=== PATIENT | male | born 1950 | race Caucasian/White ===

== ENCOUNTER → 2016-12-22 | Outpatient (CLI) | payer OTHER ==
--- NOTE | 2016-12-23 09:12 | MR ---
MRI Lower Extremity, Right hip History: Right hip pain. Evaluate psoas. ICD-10 code: M25.559. Comparisons: Right hip pain. Technique: MRI was performed of the pelvis and right hip using a 3 [employer] MRI system. Large field-of-v iew coronal and axial imaging was obtained with standard imaging sequences. High-resolution small fie ld-of-view imaging was obtained of the hip with oblique axial, oblique coronal, and sagittal images w ith standard imaging sequences. Findings: The bone marrow edema and periosteal edema anteriorly in the right iliac near the sacroilia c joint have resolved over the interval indicating a healed stress fracture. No evidence for sacroili itis. No evidence for avascular necrosis of the femoral head. No evidence for stress fracture of the femoral neck. There is an enlarged nodular prostate. 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 Degenerative disk and degenerative joint disease is seen in the lower lumbar spine. Iliopsoas muscles and tendons are unremarkable bilaterally. Gluteus tendons are unremarkable at the g reater trochanter without attenuation. The other visualized musculature and tendons are unremarkable. Femoral head neck junction of the right hip has a contour abnormality at the anterosuperior aspect wh ich could be from prior osteoplasty. Mild periarticular spurring is seen in the femoral head and acet abulum. Mild cartilage thinning is seen superiorly in the femoral head and acetabulum. The anterior s uperior labrum is diminutive and frayed. Ligamentum teres is intact. Impression: 1. Mild early degenerative change right hip with mild cartilage thinning superiorly. Diminutive fraye d anterior superior labrum. 2. Healed stress injury at the anterior right ilium. 3. Iliopsoas muscle and tendon are unremarkable. 4. Large nonspecific prostate. Bladder diverticulum. 5. Degenerative disk and degenerative joint disease lower lumbar spine.
== END ==
LOC: FIMAGING 18:43
PROVIDERS: ATTEND Physical Medicine & Rehabilitation
DX: M16.11 Unilateral primary osteoarthritis, right hip (principal); N40.0 Benign prostatic hyperplasia without lower urinary tract symptoms; M51.36 Other intervertebral disc degeneration, lumbar region; N32.3 Diverticulum of bladder

== ENCOUNTER → 2018-01-26 | Outpatient (CLI) | payer OTHER | LOC: FIMAGING 13:44 | PROVIDERS: ATTEND Internal Medicine | DX: R05 Cough (principal); J34.89 Other specified disorders of nose and nasal sinuses ==

== ENCOUNTER 2018-02-12 15:45 | Inpatient (IN) | payer OTHER ==
[2018-02-12] MEDS ORDERED: methylPREDNISolone SOD SUCC 125 MG/2 ML VIAL IVP ONE (16:05)
[2018-02-12] MEDS ORDERED: ALBUTEROL 3 ML DEYVIAL IH ONE (16:05)
[2018-02-12] MEDS ORDERED: IPRATROPIUM/ALBUTEROL 3 ML DEYVIAL IH ONE (16:05)
--- NOTE | 2018-02-12 16:06 | EDPHY ---
H & P Time Seen by Provider: 02/12/18 15:53 HPI/ROS: CHIEF COMPLAINT: Cough and fever HISTORY OF PRESENT ILLNESS: Patient started getting sick 4 days ago last week and then had to skip work on and Tuesday because he felt so badly. He went urgent care to Tuesday and was started on Tamiflu despite an influenza test and then proceeded to get better for 24 hr. Last night he started getting worse and has had severe coughing and unable to sleep. Associated with fever and chills but not with hemoptysis or sputum production. He is associated no energy and headache and diffuse myalgias. Not better worse with anything. Much worse since 1899 last night. REVIEW OF SYSTEMS: Eye: no change in vision ENT: Mild sore throat but no ear symptoms Cardiac: no chest pain or syncope Pulmonary: HPI Abdomen: no vomiting, diarrhea, abdominal pain, decreased oral intake for the past 4 days Musculoskeletal: Diffuse myalgias nothing specific , no neck stiffness Skin: no rash Neuro: HPI Constitutional: HPI : no urinary symptoms A comprehensive 10 point review of systems is otherwise negative aside from elements mentioned in the history of present illness. PAST MEDICAL HISTORY: Includes chronic right hip pain, reflux, enlarged prostate, depression Social history: Here with a partner, nonsmoker, no recent foreign travel. General Appearance: Alert and conversant, cooperative. Eyes: No scleral icterus. ENT, Mouth: Slightly dry mucous membranes. No angioedema, no pharyngeal erythema or exudate, uvula midline. Respiratory: Bilateral expiratory wheezing, diffuse rhonchi, severe coughing. Cardiovascular: Regular rate and rhythm. Gastrointestinal: Abdomen is soft and non tender. Neurological: Alert, face symmetric, normal motor and sensory in extremities. Skin: Warm and dry, no rashes. Musculoskeletal: No neck stiffness, no calf tenderness. Psychiatric: Not agitated. Emergency Department course/MDM: Albuterol and DuoNeb, 125 mg IV Solu-Medrol. Chest x-ray and sepsis screening. 1638: Negative lactate and not hypotensive, right lower lung infiltrate on chest x-ray. Admission for nebulizer, steroids, IV antibiotics. Has not been hospitalized in the last 90 days. Normal saline 1 L IV, fluid resuscitation for pneumonia with hyponatremia and does not have severe sepsis or septic shock. Re-evaluated at 4:45 p.m., labs and plan discussed with patient and his partner. Smoking Status: Never smoked Constitutional: Initial Vital Signs Temperature (C) 38.0 C 02/12/18 15:49 Heart Rate 101 H 02/12/18 15:49 Respiratory Rate 20 02/12/18 15:49 Blood Pressure 137/71 H 02/12/18 15:49 O2 Sat (%) 92 02/12/18 15:49 O2 Delivery Mode Room Air Allergies/Adverse Reactions: Sulfa (Sulfonamide Antibiotics) Allergy (Mild, Verified 02/12/18 15:47) Other-Enter Comments IODINE IVP DYE Allergy (Intermediate, Uncoded 02/22/11 10:01) Hives ENVIRONMENTAL Allergy (Mild, Uncoded 02/22/11 10:02) Other-Enter Comments Home Medications: Medication Instructions Recorded FLUoxetine HCL [Fluoxetine Dr] 90 mg PO 12/01/11 Mometasone Furoate Nasal [Nasonex] 1 sprays NASAL DAILY 12/01/11 Pravastatin Sodium mg PO 12/01/11 Zolpidem Tartrate [Ambien] 5 mg PO HS PRN 12/01/11 traZODone [traZODone 150MG (*)] 150 mg PO HS 12/01/11 Gabapentin [Neurontin 300 MG (*)] 300 mg PO HS 02/12/18 Meloxicam [Mobic 15 mg] 15 mg PO 02/12/18 Oseltamivir Phosphate [Tamiflu 75 75 mg PO BID 02/12/18 mg (*)] Tamsulosin HCl [Flomax 0.4 MG (*)] 0.4 mg PO DAILY 02/12/18 buPROPion XL [Wellbutrin Xl] 150 mg PO DAILY 02/12/18 oxyCODONE IR [Oxycodone Ir (*)] 10 mg PO 02/12/18 tiZANidine HCL [Zanaflex] 4 mg PO TID 02/12/18 Medical Decision Making - Diagnostics Imaging Results: Imaging Impressions Chest X-Ray 02/12/18 16:06 Impression: Bronchitis with streaky right basilar opacities that could be related to atelectasis or early pneumonia. Right lower lung infiltrate personally interpreted on chest x-ray. Differential Diagnosis: Differential considered including but not limited to pneumonia, pulmonary embolism, influenza, bronchitis, reactive airway disease. Consult/Admit Bed Type: [place] [id number] - Data Points Laboratory Results: Laboratory Results 02/12/18 16:15 02/12/18 16:15 02/12/18 02/12/18 02/12/18 16:15 16:15 16:15 WBC RBC Hgb Hct MCV MCH MCHC RDW Plt Count MPV Neut % (Auto) Lymph % (Auto) [place] % (Auto) Eos % (Auto) Baso % (Auto) Nucleat RBC Rel Count Absolute Neuts (auto) Absolute Lymphs (auto) Absolute Monos (auto) Absolute Eos (auto) Absolute Basos (auto) Absolute Nucleated RBC Immature Gran % Immature Gran # PT 13.8 SEC SEC (12.0-15.0) INR 1.04 (0.83-1.16) APTT 29.6 SEC SEC (23.0-38.0) VBG Lactic Acid 1.2 mmol/L mmol/L (0.7-2.1) Sodium Potassium Chloride Carbon Dioxide Anion Gap BUN Creatinine Estimated GFR Glucose Calcium Total Bilirubin Procalcitonin Pending 02/12/18 02/12/18 16:15 16:15 WBC 9.47 10^3/uL 10^3/uL (3.80-9.50) RBC 4.37 10^6/uL L 10^6/uL (4.40-6.38) Hgb 13.8 g/dL g/dL (13.7-17.5) Hct 39.1 % L % (40.0-51.0) MCV 89.5 fL fL (81.5-99.8) MCH 31.6 pg pg (27.9-34.1) MCHC 35.3 g/dL g/dL (32.4-36.7) RDW 12.0 % % (11.5-15.2) Plt Count 143 10^3/uL L 10^3/uL (150-400) MPV 9.3 fL fL (8.7-11.7) Neut % (Auto) 84.1 % H % (39.3-74.2) Lymph % (Auto) 6.2 % L % (15.0-45.0) [place] % (Auto) 9.1 % % (4.5-13.0) Eos % (Auto) 0.0 % L % (0.6-7.6) Baso % (Auto) 0.2 % L % (0.3-1.7) Nucleat RBC Rel Count 0.0 % % (0.0-0.2) Absolute Neuts (auto) 7.96 10^3/uL H 10^3/uL (1.70-6.50) Absolute Lymphs (auto) 0.59 10^3/uL L 10^3/uL (1.00-3.00) Absolute Monos (auto) 0.86 10^3/uL H 10^3/uL (0.30-0.80) Absolute Eos (auto) 0.00 10^3/uL L 10^3/uL (0.03-0.40) Absolute Basos (auto) 0.02 10^3/uL 10^3/uL (0.02-0.10) Absolute Nucleated RBC 0.00 10^3/uL 10^3/uL (0-0.01) Immature Gran % 0.4 % % (0.0-1.1) Immature Gran # 0.04 10^3/uL 10^3/uL (0.00-0.10) PT INR APTT VBG Lactic Acid Sodium 125 mEq/L L mEq/L (135-145) Potassium 4.5 mEq/L mEq/L (3.5-5.2) Chloride 93 mEq/L L mEq/L (97-110) Carbon Dioxide 25 mEq/l mEq/l (22-31) Anion Gap 7 mEq/L L mEq/L (8-16) BUN 8 mg/dL mg/dL (7-23) Creatinine 0.7 mg/dL mg/dL (0.7-1.3) Estimated GFR > 60 Glucose 92 mg/dL mg/dL (70-100) Calcium 8.1 mg/dL L mg/dL (8.5-10.4) Total Bilirubin 0.7 mg/dL mg/dL (0.1-1.4) Procalcitonin Medications Given: Azithromycin 500 mg/ Dextrose 255 mls @ 255 mls/hr IV EDNOW ONE PRN Reason: Protocol Stop: 02/12/18 17:44 Last Admin: 02/12/18 17:16 Dose: 255 mls Discontinued Medications Albuterol (Proventil Neb) 3 ml IH EDNOW ONE Stop: 02/12/18 16:06 Last Admin: 02/12/18 16:28 Dose: 3 ml Albuterol/Ipratropium (Duoneb) 3 ml IH EDNOW ONE Stop: 02/12/18 16:06 Last Admin: 02/12/18 16:28 Dose: 3 ml Sodium Chloride (Ns) 1,000 mls @ 0 mls/hr IV ONCE ONE PRN Reason: Wide Open Stop: 02/12/18 16:29 Last Admin: 02/12/18 16:28 Dose: 1,000 mls Ceftriaxone Sodium/Dextrose (Rocephin 1 Gm (Premix)) 50 mls @ 100 mls/hr IV EDNOW ONE PRN Reason: Protocol Stop: 02/12/18 17:14 Last Admin: 02/12/18 17:15 Dose: 50 mls Methylprednisolone Sodium Succinate (Solu-Medrol) 125 mg IVP EDNOW ONE Stop: 02/12/18 16:06 Last Admin: 02/12/18 16:28 Dose: 125 mg Departure - Departure Disposition: [facility] Inpatient Acute Clinical Impression: Hyponatremia Pneumonia Qualifiers: Pneumonia type: due to unspecified organism Laterality: right Lung location: lower lobe of lung Qualified Code(s): J18.1 - Lobar pneumonia, unspecified organism Condition: Good
[2018-02-12 16:27] LABS: PLATELET COUNT 143 10^3/uL (150-400)
[2018-02-12] MEDS ORDERED: NS 1,000 ML IV ONE (16:28)
[2018-02-12 16:37] LABS: INR 1.04 (0.83-1.16); PROTIME(PATIENT) 13.8 SEC (12.0-15.0)
[2018-02-12] MEDS ORDERED: AZITHROMYCIN IV 500 MG in D5W 250 ML IV ONE (16:45)
[2018-02-12] MEDS ORDERED: ACETAMINOPHEN 325 MG TAB PO PRN (17:25)
[2018-02-12] MEDS ORDERED: ONDANSETRON 4 MG/2 ML VIAL IVP PRN (17:25)
[2018-02-12] MEDS ORDERED: ONDANSETRON DISINTEGRATING 4 MG TAB PO PRN (17:25)
[2018-02-12] MEDS ORDERED: guaiFENesin/CODEINE PHOS 10 ML UDCUP PO PRN (17:29)
[2018-02-12] MEDS: BENZONATATE 100 MG CAP PO PRN (18:36)
[2018-02-12] MEDS ORDERED: OXYMETAZOLINE 30 ML NASAL SPRAY EACHNARE PRN (18:51)
[2018-02-12] MEDS ORDERED: [UNRECOGNIZED DRUG - OTHER] TP PRN (18:51)
--- NOTE | 2018-02-12 18:58 | PDGENHP ---
History and Physical - Chief Complaint Acute cough - History of Present Illness Primary care provider: Dr. Kamila Rudolph Primary fitter placer: [facility] HPI: 67-year-old male presenting with acute cough characterized as nonproductive, pervasive, associated with myalgias, subjective fevers and chills , diarrhea, nausea, anorexia. Onset of his symptoms was 4 days ago and he presented to urgent care where he reportedly had a negative flu swab but was prescribed Tamiflu anyway and began and at that time. He reports that the Tamiflu initially alleviated his symptoms somewhat for approximately 24 hr, prior to them we initiating and worsening approximately 48 hr prior to this presentation. Over the past 48 hr, his cough has been of persistently pervasive duration and has prevented him from sleeping. He has attempted utilizing guaifenesin with dextromethorphan at home with marginal success. Prior to his onset of symptoms, he had otherwise been doing well. He reports that he chronically takes oxycodone for hip pain, and he has weaned from 10 mg to 5 mg, used as needed 4 to 5 times a day. History Information - Allergies/Home Medication List Allergies/Adverse Reactions: Sulfa (Sulfonamide Antibiotics) Allergy (Mild, Verified 02/12/18 15:47) Other-Enter Comments Iodinated Contrast- Oral and IV Dye Allergy (Verified 02/12/18 17:48) Hives ENVIRONMENTAL Allergy (Mild, Uncoded 02/22/11 10:02) Other-Enter Comments Home Medications: Mometasone Furoate Nasal [Nasonex] 2 sprays NASAL DAILY 12/01/11 [Last Taken 12/01] Zolpidem Tartrate [Ambien] 5 mg PO HS 12/01/11 [Last Taken 02/11/18] traZODone [traZODone 150MG (*)] 150 mg PO HS 12/01/11 [Last Taken 02/11/18] Acetaminophen [Tylenol ES 500 mg (*)] 1,000 mg PO TID 02/12/18 [Last Taken 02/12 13:00] Compounded Pain Cream 1 ludin TP DAILY PRN 02/12/18 [Last Taken Unknown] Docusate Sodium [Colace 100 MG (*)] 100 mg PO TID 02/12/18 [Last Taken 02/12/18 13:00] Fexofenadine HCl [Marlene Allergy] 180 mg PO DAILY 02/12/18 [Last Taken 02/12/18 ] Gabapentin [Neurontin 300 MG (*)] 300 mg PO HS 02/12/18 [Last Taken 02/11/18] Herbals/Supplements -Info Only 1 ea PO DAILY 02/12/18 [Last Taken Unknown] Lansoprazole [Prevacid] 30 mg PO DAILY 02/12/18 [Last Taken 02/12/18] Meloxicam [Mobic 15 mg] 15 mg PO DAILY 02/12/18 [Last Taken 02/12/18] Oseltamivir Phosphate [Tamiflu 75 mg (*)] 75 mg PO BID 02/12/18 [Last Taken 12/01] Oxymetazoline HCl [Afrin Nasal [place] (OTC)] 1 spray EACHNARE HS PRN 02/12/18 [ Last Taken 02/11/18] Tamsulosin HCl [Flomax 0.4 MG (*)] 0.8 mg PO DAILY 02/12/18 [Last Taken 02/12/18 ] buPROPion XL [Wellbutrin Xl] 150 mg PO TID 02/12/18 [Last Taken 02/12/18 13:00] oxyCODONE IR [Oxycodone Ir (*)] 5 mg PO 5XD PRN 02/12/18 [Last Taken Unknown] tiZANidine HCL [Zanaflex] 12 mg PO HS 02/12/18 [Last Taken 02/11/18] I have personally reviewed and updated: family history, medical history, social history, surgical history - Past Medical History Additional medical history: Chronic cough currently undergoing workup at [facility], patient has a reportedly normal methacholine challenge test, normal chest CT, normal esophageal pH monitoring. BPH. Depression. Gastroesophageal reflux disease. Chronic hip pain with radiculopathy, mild osteoarthritis, sacroiliac disease, hamstring tendinitis and resultant continuous opiate dependency - Surgical History Additional surgical history: Previous orthopedic surgeries - Family History Additional family history: No family history of venous thromboembolism or pulmonary disorders - Social History Smoking Status: Never smoked Alcohol Use: Occasionally Drug Use: None Additional social history: Patient is normally ambulatory and does not experience chest pain or exertional shortness of breath Review of Systems Review of Systems: ROS: 10pt was reviewed & negative except for what was stated in HPI & below Constitutional: Reports: chills, fever, malaise, other (Anorexia) Respiratory: Reports: cough Gastrointestinal: Reports: diarrhea, nausea Muscolosketal: Reports: joint pain Physical Exam Physical Exam: Temp Pulse Resp BP Pulse Ox 38.0 C 96 20 130/77 H 92 02/12/18 18:37 02/12/18 18:37 02/12/18 18:37 02/12/18 18:37 02/12/18 18:37 Constitutional: appears nourished, not in pain (Mild in hip), uncomfortable ( Persistently coughing), No no apparent distress (Mild distress) Eyes: EOMI, scleral injection Ears, Nose, Mouth, Throat: hearing normal, other (Tacky mucous membranes) Cardiovascular: tachycardia, No systolic murmur, No irregularly irregular, No edema Respiratory: reduced air movement (Unable to deeply inspire secondary to cough) , other (Persistent cough during the entire exam), No expiratory wheeze, No bronchial breath sounds Gastrointestinal: normoactive bowel sounds, soft, non-tender abdomen, no palpable masses, No distension Skin: No abrasion, No rash Neurologic: AAOx3, No facial droop Psychiatric: interacting appropriately, not anxious, not encephalopathic, thought process linear Lab Data & Imaging Review 02/12/18 16:15 02/12/18 16:15 WBC 9.47 10^3/uL (3.80-9.50) 02/12/18 16:15 RBC 4.37 10^6/uL (4.40-6.38) L 02/12/18 16:15 Hgb 13.8 g/dL (13.7-17.5) 02/12/18 16:15 Hct 39.1 % (40.0-51.0) L 02/12/18 16:15 MCV 89.5 fL (81.5-99.8) 02/12/18 16:15 MCH 31.6 pg (27.9-34.1) 02/12/18 16:15 MCHC 35.3 g/dL (32.4-36.7) 02/12/18 16:15 RDW 12.0 % (11.5-15.2) 02/12/18 16:15 Plt Count 143 10^3/uL (150-400) L 02/12/18 16:15 MPV 9.3 fL (8.7-11.7) 02/12/18 16:15 Neut % (Auto) 84.1 % (39.3-74.2) H 02/12/18 16:15 Lymph % (Auto) 6.2 % (15.0-45.0) L 02/12/18 16:15 [place] % (Auto) 9.1 % (4.5-13.0) 02/12/18 16:15 Eos % (Auto) 0.0 % (0.6-7.6) L 02/12/18 16:15 Baso % (Auto) 0.2 % (0.3-1.7) L 02/12/18 16:15 Nucleat RBC Rel Count 0.0 % (0.0-0.2) 02/12/18 16:15 Absolute Neuts (auto) 7.96 10^3/uL (1.70-6.50) H 02/12/18 16:15 Absolute Lymphs (auto) 0.59 10^3/uL (1.00-3.00) L 02/12/18 16:15 Absolute Monos (auto) 0.86 10^3/uL (0.30-0.80) H 02/12/18 16:15 Absolute Eos (auto) 0.00 10^3/uL (0.03-0.40) L 02/12/18 16:15 Absolute Basos (auto) 0.02 10^3/uL (0.02-0.10) 02/12/18 16:15 Absolute Nucleated RBC 0.00 10^3/uL (0-0.01) 02/12/18 16:15 Immature Gran % 0.4 % (0.0-1.1) 02/12/18 16:15 Immature Gran # 0.04 10^3/uL (0.00-0.10) 02/12/18 16:15 PT 13.8 SEC (12.0-15.0) 02/12/18 16:15 INR 1.04 (0.83-1.16) 02/12/18 16:15 APTT 29.6 SEC (23.0-38.0) 02/12/18 16:15 VBG Lactic Acid 1.2 mmol/L (0.7-2.1) 02/12/18 16:15 Sodium 125 mEq/L (135-145) L 02/12/18 16:15 Potassium 4.5 mEq/L (3.5-5.2) 02/12/18 16:15 Chloride 93 mEq/L (97-110) L 02/12/18 16:15 Carbon Dioxide 25 mEq/l (22-31) 02/12/18 16:15 Anion Gap 7 mEq/L (8-16) L 02/12/18 16:15 BUN 8 mg/dL (7-23) 02/12/18 16:15 Creatinine 0.7 mg/dL (0.7-1.3) 02/12/18 16:15 Estimated GFR > 60 02/12/18 16:15 Glucose 92 mg/dL (70-100) 02/12/18 16:15 Calcium 8.1 mg/dL (8.5-10.4) L 02/12/18 16:15 Total Bilirubin 0.7 mg/dL (0.1-1.4) 02/12/18 16:15 Procalcitonin 0.22 ng/mL (0.02-0.10) H 02/12/18 16:15 Visualized and Interpreted Chest x-ray results: Yes Chest X-Ray results: other (Possible right lower lobe infiltrate) Assessment & Plan Assessment: 67-year-old male presenting with acute right lower lobe pneumonia complicated by acute hyponatremia and persistent cough Plan: 1. Community-acquired pneumonia. Acute, new problem this provider, further workup indicated. Present on admission, evidenced by possible right lower lobe infiltrate on chest x-ray with significant pulmonary symptoms as well as multi- system involvement, suggesting possibility of viral cause -get respiratory viral panel -get sputum culture -get urine strep and urine Legionella -discussed with patient and his partner whether additional chest imaging is indicated at this time, we have agreed to treat empirically and then reassess tomorrow determine whether we will repeat chest x-ray or chest CT, as I sense that the patient's current chest x-ray is somewhat underwhelming given the patient's relative hypovolemia -IV ceftriaxone and azithromycin, continue -treat cough supportively with mucolytics, antitussives, duo nebs overnight 2. Acute hyponatremia. Most likely secondary to hypovolemia in the setting of above, reviewed outside records including 11/29/2017 labs demonstrating a serum sodium level of 138, indicating that this level of 125 is acute -continue normal saline at 100 cc an hour and repeat serum sodium level at 10: 00 p.m. To ensure the rise is not too rapid 3. Chronic pain with continuous opiate dependency. Continue patient on his numerous pain management strategies Diet. Regular Prophylaxis. High risk patient, Lovenox 40 Code. Full Disposition. Anticipated discharge is uncertain this time, anticipated length stay greater than 48 hr for reasonable medical necessity including acute community-acquired pneumonia with a severe cough requiring aggressive management with high risk comorbid acute hyponatremia requiring ongoing monitoring. I have discussed patient's presentation with Dr. Anuj De La Rosa in the emergency department, we both agree the patient warrants inpatient admission at this time.
[2018-02-12] MEDS: NS 1,000 ML IV SCH (19:35)
[2018-02-12] MEDS: oxyCODONE IR 5 MG TAB PO PRN (19:58)
[2018-02-12] MEDS: buPROPion XL 150 MG TAB PO SCH (22:03)
[2018-02-12] MEDS: guaiFENesin 600 MG TAB.ER PO SCH (22:04)
[2018-02-12] MEDS: ZOLPIDEM TARTRATE 5 MG TAB PO SCH (22:04)
[2018-02-12] MEDS: DOCUSATE SODIUM 100 MG CAP PO SCH (22:04)
[2018-02-12] MEDS: ACETAMINOPHEN 500 MG TAB PO SCH (22:04)
[2018-02-12] MEDS: GABAPENTIN 300 MG CAP PO SCH (22:04)
[2018-02-12] MEDS: IPRATROPIUM/ALBUTEROL 3 ML DEYVIAL IH SCH (22:50)
[2018-02-13] MEDS: IPRATROPIUM/ALBUTEROL 3 ML DEYVIAL IH SCH (05:02)
[2018-02-13 05:33] LABS: PLATELET COUNT 166 10^3/uL (150-400)
[2018-02-13] MEDS: NS 1,000 ML IV SCH (06:05)
--- NOTE | 2018-02-13 06:09 | PDMN ---
Medical Necessity Medical necessity: Pt meets IP criteria per MD; est los >2 mn for aggressive management of viral pneumonia w/severe cough & high risk comorbid acute hyponatremia; admit for further workup/monitoring, supportive care, IVFs, IV abx & therapy; per H&P & order 02/12/18
[2018-02-13] MEDS: buPROPion XL 150 MG TAB PO SCH ×3 (07:23→21:41)
[2018-02-13] MEDS: BENZONATATE 100 MG CAP PO PRN ×2 (07:23→16:44)
[2018-02-13] MEDS: oxyCODONE IR 5 MG TAB PO PRN ×3 (08:25→22:23)
[2018-02-13] MEDS: CETIRIZINE 10 MG TAB PO SCH (08:25)
[2018-02-13] MEDS: ACETAMINOPHEN 500 MG TAB PO SCH ×3 (08:26→20:56)
[2018-02-13] MEDS: ENOXAPARIN 40 MG/0.4 ML SYR SC SCH (08:26)
[2018-02-13] MEDS: TAMSULOSIN HCL 0.4 MG CAP PO SCH (08:26)
[2018-02-13] MEDS: guaiFENesin 600 MG TAB.ER PO SCH ×2 (08:27→20:57)
[2018-02-13] MEDS: DOCUSATE SODIUM 100 MG CAP PO SCH ×3 (08:27→20:57)
[2018-02-13] MEDS ORDERED: Meloxicam [Mobic 15 Mg] 15 MG PO SCH (09:00)
[2018-02-13] MEDS ORDERED: AZITHROMYCIN IV 500 MG in NS 250 ML IV SCH (09:00)
[2018-02-13] MEDS ORDERED: Herbals/Supplements -Info Only PO SCH (09:00)
[2018-02-13] MEDS ORDERED: LANSOPRAZOLE SUSP 3 MG/ML UDSYR (Peds) PO SCH (09:00)
[2018-02-13] MEDS: Mometasone Furoate Nasal [Nasonex] 2 SPRAYS NASAL SCH (09:38)
[2018-02-13] MEDS ORDERED: IPRATROPIUM/ALBUTEROL 3 ML DEYVIAL IH PRN (09:55)
[2018-02-13] MEDS: NAPROXEN SODIUM 220 MG TAB PO SCH ×2 (10:56→20:55)
--- NOTE | 2018-02-13 12:22 | ASMTCASEMG ---
Living Arrangements What is your living Answers: With Partner arrangement? Who do you live with? Type Of Residence What kind of residence do Answers: House you live in? Discharge Plan Comments Coordination Status Comments Notes: Pt is a 67 y/o man admitted for pneumonia. Pt is retired psychologist. PT has cleared pt to be independent. CM does not anticipate having any d/c needs. CM available for changes. Plan: Independent Date Signed: 02/13/2018 12:21 PM Electronically Signed By:SAMUEL Vidal
[2018-02-13] MEDS: LANSOPRAZOLE SUSP 30MG/10ML UDSYR (Adult) PO SCH (13:48)
[2018-02-13] MEDS: diphenhydrAMINE 25 MG CAP PO PRN ×2 (16:44→22:23)
--- NOTE | 2018-02-13 18:35 | HOSPPROG ---
Hospitalist Progress Note Assessment/Plan: Assessment: 67-year-old male presenting with acute multifocal viral pneumonia c/b acute hyponatremia and persistent cough Plan: 1. Viral Pneumonia. Present on admission, multifocal on chest CT (personally interpreted), metapneumovirus positive -IV ceftriaxone and azithromycin, adjust to levofloxacin given potential for concomitant bacterial organism w/ indeterminant procalcitonin and focal airspace disease on CT, had rash erupt while on CTX/Azith -treat cough supportively with mucolytics, antitussives -monitor WBC -patient's symptoms have escalated in PM past two days (febrile 7 p.m. last night), and will monitor for worsening today, support as needed -counseled patient and his partner regarding the offending viral organism, serious prognosis of this virus this season, and tx plan outlined above, then agree that monitoring for additional 24hrs is appropriate 2. Acute hyponatremia. Most likely secondary to hypovolemia in the setting of above, appropriate correction rate -repeat sNa in AM -stop IVF, tolerating PO 3. Chronic pain with continuous opiate dependency. Continue patient on his numerous pain management strategies Diet. Regular Prophylaxis. High risk patient, Lovenox 40 Code. Full Disposition. Anticipated discharge 02/14, pending stabilization of symptoms Subjective: felt worse last evening, feels like he's improving this AM and has an appetite, ongoing severe cough Objective: Vital Signs Temp Pulse Resp BP Pulse Ox 36.7 C 73 16 125/79 H 90 L 02/13/18 16:00 02/13/18 16:00 02/13/18 16:00 02/13/18 16:00 02/13/18 16:00 Microbiology 02/13/18 06:08 - Final Sputum, Expectorated 02/12/18 18:00 Respiratory Panel (PCR) - Final Nasal, Sinus - Swab Human Metapneumovirus Detected Laboratory Results 02/13/18 05:05 02/13/18 05:05 02/12/18 02/13/18 02/14/18 05:59 05:59 05:59 Intake Total 200 803 Output Total 1600 Balance 200 -797 PT 13.8 SEC (12.0-15.0) 02/12/18 16:15 INR 1.04 (0.83-1.16) 02/12/18 16:15 - Time Spent With Patient Time Spent with Patient: greater than 35 minutes Time Spent with Patient: Greater than 35 minutes spent on this patients care, greater than 50% of time spent counseling, educating, and coordinating care regarding the above mentioned plan. - Pending Discharge Pending Discharge Within 24 Hours: Yes Pending Discharge Date: 02/14/18 Pending Discharge Time: 11:00 - Physical Exam Constitutional: not in pain, uncomfortable Cardiovascular: regular rate and rhythym, no murmur, rub, or gallop Respiratory: reduced air movement (2/2 cough w/ any inspiration), inspiratory crackles (faint), No expiratory wheeze, No bronchial breath sounds Gastrointestinal: normoactive bowel sounds, soft, non-tender abdomen, no palpable masses Neurologic: AAOx3 Psychiatric: interacting appropriately, not anxious, not encephalopathic, thought process linear ICD10 Worksheet Patient Problems: Problems Problem Status Onset Pneumonia Acute Hyponatremia Acute
[2018-02-13] MEDS: GABAPENTIN 300 MG CAP PO SCH (20:56)
[2018-02-13] MEDS: GUAIFENESIN/DM 10 ML UDCUP PO PRN (21:03)
[2018-02-13] MEDS: ZOLPIDEM TARTRATE 5 MG TAB PO SCH (22:23)
[2018-02-14 05:14] VITALS: RESP 18
[2018-02-14 05:59] LABS: PLATELET COUNT 160 10^3/uL (150-400)
[2018-02-14 07:45] VITALS: BP 133/68; PULSE 76; TEMP 98.2; O2SAT 94
[2018-02-14] MEDS: ACETAMINOPHEN 500 MG TAB PO SCH (08:53)
[2018-02-14] MEDS: TAMSULOSIN HCL 0.4 MG CAP PO SCH (08:54)
[2018-02-14] MEDS: oxyCODONE IR 5 MG TAB PO PRN ×2 (08:54→11:44)
[2018-02-14] MEDS: CETIRIZINE 10 MG TAB PO SCH (08:54)
[2018-02-14] MEDS: DOCUSATE SODIUM 100 MG CAP PO SCH (08:54)
[2018-02-14] MEDS: buPROPion XL 150 MG TAB PO SCH ×2 (08:54→09:05)
[2018-02-14] MEDS: guaiFENesin 600 MG TAB.ER PO SCH (08:54)
[2018-02-14] MEDS: NAPROXEN SODIUM 220 MG TAB PO SCH (08:55)
[2018-02-14] MEDS: ENOXAPARIN 40 MG/0.4 ML SYR SC SCH (08:55)
[2018-02-14] MEDS: GUAIFENESIN/DM 10 ML UDCUP PO PRN (08:55)
[2018-02-14] MEDS: BENZONATATE 100 MG CAP PO PRN (08:55)
[2018-02-14] MEDS: Mometasone Furoate Nasal [Nasonex] 2 SPRAYS NASAL SCH (09:10)
[2018-02-14] MEDS: LANSOPRAZOLE SUSP 30MG/10ML UDSYR (Adult) PO SCH (11:56)
--- NOTE | 2018-02-14 12:00 | HOSPPROG ---
Hospitalist Progress Note Assessment/Plan: 67-year-old male presenting with acute multifocal viral pneumonia c/b acute hyponatremia and persistent cough * Viral Pneumonia -secondary to human metapneumovirus -supportive care -on Levaquin -on room air. -blood cultures show no growth * Acute hyponatremia secondary to hypovolemia * Chronic pain with continuous opiate dependency. *Plan: dc home, Doug is feeling much better today Subjective: Doug has no complaints. Objective: Vital Signs Temp Pulse Resp BP Pulse Ox 36.8 C 76 18 133/68 H 94 02/14/18 07:44 02/14/18 07:44 02/14/18 07:44 02/14/18 07:44 02/14/18 07:44 Microbiology 02/13/18 06:08 - Final Sputum, Expectorated Laboratory Results 02/14/18 05:20 02/14/18 05:20 02/13/18 02/14/18 02/15/18 05:59 05:59 05:59 Intake Total 200 1283 Output Total 1600 Balance 200 -317 PT 13.8 SEC (12.0-15.0) 02/12/18 16:15 INR 1.04 (0.83-1.16) 02/12/18 16:15 - Physical Exam Constitutional: no apparent distress, appears nourished, not in pain Eyes: PERRL Ears, Nose, Mouth, Throat: hearing normal Cardiovascular: regular rate and rhythym Respiratory: no respiratory distress, clear to auscultation Skin: warm Musculoskeletal: full muscle strength Neurologic: AAOx3 Psychiatric: interacting appropriately ICD10 Worksheet Patient Problems: Problems Problem Status Onset Hyponatremia Acute Pneumonia Acute
--- NOTE | 2018-02-14 23:25 | GDS ---
[f rep st] DISCHARGE SUMMARY DISCHARGE DIAGNOSES: 1. Viral pneumonia, human metapneumovirus. 2. Acute hyponatremia. 3. Chronic pain with continuous opioid dependency. Briefly, the patient is a 67-year-old male who presented to the emergency room with a cough, with ass ociated myalgias, fevers and chills, as well as diarrhea and nausea. He presented to Urgent Care whe re he probably had a negative flu swab, but was prescribed Tamiflu, and began at that time. The [place] flu initially helped the symptoms, but he still continued to feel poorly. He came to the emergency r oom for further evaluation. A chest x-ray was performed, which showed bronchitis with streaky right basilar opacities that could be related to atelectasis or early pneumonia. Subsequently, he had a est CT performed that shows small bilateral areas of consolidation with more prominent bilateral grou nd-glass opacities, likely related to multifocal pneumonia. A short-term followup CT is recommended in 3 months. Also noted that he had coronary artery atherosclerosis, and mild airway disease with ri ght basilar atelectasis and tiny bilateral pleural effusions, and also noted he had cholelithiasis. He was treated IV antibiotics. This was changed to Levaquin. He is feeling markedly better today. His oxygen levels are stable on room air. He will be discharged home and further followup with Dr. Kellie antonio in the outpatient setting. HOSPITAL COURSE: 1. Viral pneumonia. This is secondary to the human metapneumovirus. He is on room air. Blood cult ures were checked, which showed no growth. He is much improved with starting antibiotics, we will co ntinue this. 2. Hyponatremia. This is secondary to hypovolemia, resolved. 3. Chronic pain with continuous opiate dependency. Resumed his home medication regimen. DISCHARGE CONDITION: Stable. Blood pressure is 132/68, heart rate is 76, respiratory rate is 18, O2 sats on room air 94%, temperat ure 36.8 Celsius. DISCHARGE MEDICATIONS: Please see the EMR. DISCHARGE INSTRUCTIONS: 1. To follow up with Dr. Kamila Rudolph in the next few weeks. 2. To get a repeat CT scan in 3 months for followup. 3. Repeat chest x-ray in [address] scan indicated coronary artery atherosclerosis. Further followup with his primary care pr ovidsharon. 5. If he develops any tendon pain, to stop the Levaquin and see his primary care provider theodore montero /[id number]/MODL
== END 2018-02-14 14:17 | disposition home or self-care (01) | DRG 194 ==
LOC: F3E 18:33
PROVIDERS: ADMIT Internal Medicine; ATTEND Internal Medicine
DX: J12.3 Human metapneumovirus pneumonia (principal); E87.1 Hypo-osmolality and hyponatremia; M25.559 Pain in unspecified hip; F11.20 Opioid dependence, uncomplicated; K21.9 Gastro-esophageal reflux disease without esophagitis
CPT/HCPCS: 87449-90; 96374; 97116-GP; 97161-GP; G8978-GP-CH; G8978-GP-CI; G8979-GP-CH; G8979-GP-CI; G8980-GP-CH; J0456; J0696; J1650; J2930; J7613

== ENCOUNTER → 2018-07-30 | Outpatient (CLI) | payer OTHER | LOC: FIMAGING 10:28 | PROVIDERS: ATTEND Orthopaedic Surgery | DX: Z01.818 Encounter for other preprocedural examination (principal); M17.11 Unilateral primary osteoarthritis, right knee ==

== ENCOUNTER 2018-08-09 11:23 | Observation (INO) | payer OTHER ==
--- NOTE | 2018-08-09 07:16 | PDHPUP ---
History & Physical Update H&P update statement: This history and physical update is based on an assessment of the patient which was completed after admission or registration (within 24 hours), but prior to the surgery/procedure. H&P update: H&P reviewed & patient examined, no change in patient's condition since H&P completed
[~2018-08-09 11:23] MED LIST: ROPIVACAINE 0.2% 80 MG, EPINEPHrine 0.2 MG, KETOROLAC TROMETHAMINE 30 MG in SYRINGE 0 ML IU ONE; TRANEXAMIC ACID 3,000 MG in NS (SYRINGE) 50 ML IRR ONE; TRANEXAMIC ACID 3,000 MG/50 ML BAG IRR ONE
[2018-08-09] MEDS ORDERED: DEXAMETHASONE 4 MG/ML VIAL IVP ONE (11:45)
[2018-08-09] MEDS ORDERED: FAMOTIDINE 20 MG TAB PO ONE (11:45)
[2018-08-09] MEDS ORDERED: ceFAZolin 2 GM/DEXTROSE 100 ML IV ONE (11:45)
[2018-08-09] MEDS ORDERED: ACETAMINOPHEN 325 MG TAB PO ONE (11:45)
[2018-08-09] MEDS ORDERED: LR 1,000 ML IV ONE (11:46)
[2018-08-09] MEDS ORDERED: LIDOCAINE 1% 2 ML INJ ID PRN (11:46)
[2018-08-09] MEDS ORDERED: MIDAZOLAM 2 MG/2 ML VIAL IVP ONE (12:36)
[2018-08-09] MEDS ORDERED: VANCOMYCIN 1 GM VIAL ONE (13:02)
--- NOTE | 2018-08-09 13:04 | PDANEPAE ---
ANE History of Present Illness here for R knee re-surfacing ANE Past Medical History - Cardiovascular History Hx Hypertension: No Hx Arrhythmias: No Hx Chest Pain: No Hx Coronary Artery / Peripheral Vascular Disease: No Hx CHF / Valvular Disease: No Hx Palpitations: No - Pulmonary History Hx COPD: No Hx Asthma/Reactive Airway Disease: Yes Hx Recent Upper Respiratory Infection: No Hx Oxygen in Use at Home: No Hx Sleep Apnea: No Sleep Apnea Screening Result - Last Documented: Negative Pulmonary History Comment: ALLERGIES SEASONAL - Neurologic History Hx Cerebrovascular Accident: No Hx Seizures: No Hx Dementia: No - Endocrine History Hx Diabetes: No - Renal History Hx Renal Disorders: No - Liver History Hx Hepatic Disorders: No - Neurological & Psychiatric Hx Hx Neurological and Psychiatric Disorders: Yes Neurological / Psychiatric History Comment: WELLBUTRIN - Cancer History Hx Cancer: No Cancer History Comment: BASAL CELL - Congenital Disorder History Hx Congenital Disorders: No - GI History Hx Gastrointestinal Disorders: Yes Gastrointestinal History Comment: GERD - Other Health History Other Health History: NEG - Chronic Pain History Chronic Pain: Yes (R HIP) - Surgical History Prior Surgeries: 2010 SCOPE R HIP. 2014 R SHOULDER SCOPE. 2017 R KNEE X2 ANE Review of Systems Review of systems is: negative Review of Systems: - Exercise capacity Exercise capacity: >=4 METS METS (RN): 4 METS ANE Patient History - Allergies Allergies/Adverse Reactions: Sulfa (Sulfonamide Antibiotics) Allergy (Mild, Verified 02/12/18 15:47) Other-Enter Comments Iodinated Contrast- Oral and IV Dye Allergy (Verified 02/12/18 17:48) Hives ENVIRONMENTAL Allergy (Mild, Uncoded 02/22/11 10:02) Other-Enter Comments - Home Medications Home medications: home medication list seen and reviewed Home Medications: Mometasone Furoate Nasal [Nasonex] 2 sprays NASAL DAILY 12/01/11 [Last Taken 07:00] Zolpidem Tartrate [Ambien 5MG (*)] 5 mg PO HS 12/01/11 [Last Taken 08/08/18 23: 00] traZODone [traZODone 150MG (*)] 150 mg PO HS 12/01/11 [Last Taken 08/08/18 23:00 ] Acetaminophen [Tylenol ES 500 mg (*)] 1,000 mg PO TID 02/12/18 [Last Taken 08/09 07:00] Compounded Pain Cream 1 ludin TP DAILY PRN 02/12/18 [Last Taken 08/02/18] Docusate Sodium [Colace 100 MG (*)] 100 mg PO TID 02/12/18 [Last Taken 08/09/18 07:00] Fexofenadine HCl [Marlene Allergy] 180 mg PO DAILY 02/12/18 [Last Taken 07:00] Gabapentin [Neurontin 300 MG (*)] 300 mg PO HS 02/12/18 [Last Taken 08/08/18 23: 00] Herbals/Supplements -Info Only 1 ea PO DAILY 02/12/18 [Last Taken 07/26/18] Lansoprazole [Prevacid] 30 mg PO DAILY 02/12/18 [Last Taken 08/09/18 07:00] Meloxicam [Mobic 15 mg] 15 mg PO DAILY 02/12/18 [Last Taken 08/02/18] Tamsulosin HCl [Flomax 0.4 MG (*)] 0.8 mg PO DAILY 02/12/18 [Last Taken 07:00] buPROPion XL [Wellbutrin 150mg XL] 150 mg PO TID 02/12/18 [Last Taken 08/09/18 07:00] oxyCODONE IR [Oxycodone Ir (*)] 5 mg PO 5XD PRN 02/12/18 [Last Taken 08/09/18 11 :00] tiZANidine HCL [Zanaflex] 12 mg PO HS 02/12/18 [Last Taken 08/08/18 23:00] - NPO status NPO Since - Liquids (Date): 08/09/18 NPO Since - Liquids (Time): 10:00 NPO Since - Solids (Date): 08/08/18 NPO Since - Solids (Time): 23:30 - Smoking Hx Smoking Status: Never smoked - Family Anes Hx Family Hx Anesthesia Complications: NEG ANE Labs/Vital Signs - Vital Signs Vital Signs: reviewed preoperatively; see RN documention for details Height: 172.72 cm Weight: 73.482 kg ANE Physical Exam - Airway Neck exam: FROM Mallampati Score: Class 1 - Pulmonary Pulmonary: no respiratory distress - Cardiovascular Cardiovascular: regular rate and rhythym - ASA Status ASA Status: II ANE Anesthesia Plan Anesthesia Plan: spinal Regional Anesthesia: adductor canal FNB
[2018-08-09] MEDS ORDERED: PROPOFOL/EMULSION 500 MG/50 ML BOTTLE IV ONE (13:19)
[2018-08-09] MEDS ORDERED: NALOXONE HCL 0.4 MG/ML INJ IVP PRN (13:30)
[2018-08-09] MEDS ORDERED: ONDANSETRON 4 MG/2 ML VIAL IVP PRN ×2 (13:30→13:42)
[2018-08-09] MEDS ORDERED: DEXAMETHASONE 4 MG/ML VIAL IVP PRN (13:30)
[2018-08-09] MEDS ORDERED: ALBUTEROL 3 ML DEYVIAL IH PRN (13:30)
[2018-08-09] MEDS ORDERED: NS 500 ML IV PRN (13:30)
[2018-08-09] MEDS ORDERED: HYDROmorphONE/DILAUDID 2 MG/ML INJ IVP PRN (13:30)
[2018-08-09] MEDS ORDERED: fentaNYL 100 MCG/2 ML INJ IVP PRN (13:30)
[2018-08-09] MEDS ORDERED: PROMETHAZINE HCL 25 MG/ML INJ IVP PRN (13:42)
[2018-08-09] MEDS ORDERED: MAGNESIUM HYDROXIDE 30 ML UDCUP PO PRN (13:42)
[2018-08-09] MEDS ORDERED: TEMAZEPAM 15 MG CAP PO PRN (13:42)
[2018-08-09] MEDS ORDERED: ONDANSETRON DISINTEGRATING 4 MG TAB PO PRN (13:42)
[2018-08-09] MEDS ORDERED: DIPHENOXYLATE/ATROPINE LOMOTIL 1 TAB PO PRN (13:42)
[2018-08-09] MEDS ORDERED: METOCLOPRAMIDE 10 MG/2 ML VIAL IVP PRN (13:42)
[2018-08-09] MEDS ORDERED: PROMETHAZINE HCL 25 MG SUPPR PR PRN (13:42)
[2018-08-09] MEDS ORDERED: BISACODYL 10 MG SUPP PR PRN (13:42)
[2018-08-09] MEDS ORDERED: LACTULOSE 20 GM/30 ML UDCUP PO PRN (13:42)
[2018-08-09] MEDS ORDERED: diphenhydrAMINE 25 MG CAP PO PRN (13:42)
[2018-08-09] MEDS ORDERED: POLYETHYLENE GLYCOL 3350 17 GM PKT PO PRN (13:42)
[2018-08-09] MEDS ORDERED: LR 1,000 ML IV SCH (14:00)
[2018-08-09] MEDS ORDERED: PROPOFOL 200 MG/20 ML VIAL ONE (14:14)
[2018-08-09] MEDS ORDERED: ROPIVACAINE HCL 150 MG/30 ML INJ ONE (14:23)
--- NOTE | 2018-08-09 14:34 | POSTOPPROG ---
Post Op Note Date of Operation: 08/09/18 Surgeon: Mariangel Wayne Electric Meter Inspector: nicki wayne Anesthesiologist: dr. holland Anesthesia: Spinal, Other (Specify) (adductor canal block) Pre-op Diagnosis: right knee OA and OCD Post-op Diagnosis: same Indication: right knee pain Procedure: right partial knee arthroplasty Findings: OCD lesion medial femoral condyle and OA Inf/Abcess present in the surg proc area at time of surgery?: No EBL: 50-100
--- NOTE | 2018-08-09 14:53 | POSTANESTH ---
Post Anesthetic Evaluation Cardiovascular Status: Normal, Stable Respiratory Status: Normal, Stable Level of Consciousness/Mental Status: Can Participate in Eval Pain Control: Adequate, Prn Tx Ordered Nausea/Vomiting Control: Adequate, Prn Tx Ordered Complications Possibly Related to Anesthesia: None Noted
[2018-08-09] MEDS: oxyCODONE IR 5 MG TAB PO PRN ×3 (17:46→23:16)
[2018-08-09] MEDS: ACETAMINOPHEN 325 MG TAB PO SCH ×2 (17:48→23:15)
[2018-08-09] MEDS: CYCLOBENZAPRINE 10 MG TAB PO PRN (17:48)
[2018-08-09] MEDS ORDERED: GABAPENTIN 300 MG CAP PO SCH (21:00)
[2018-08-09] MEDS: ceFAZolin 2 GM/DEXTROSE 100 ML IV SCH (21:59)
[2018-08-09] MEDS: SENNOSIDES/DOCUSATE SODIUM TAB PO SCH (22:00)
[2018-08-09] MEDS: FAMOTIDINE 20 MG TAB PO SCH (22:00)
[2018-08-09] MEDS: ASPIRIN 81 MG CHEWABLE TAB PO SCH (22:00)
[2018-08-10] MEDS: ACETAMINOPHEN 325 MG TAB PO SCH ×2 (05:30→13:04)
[2018-08-10] MEDS: ceFAZolin 2 GM/DEXTROSE 100 ML IV SCH (05:31)
[2018-08-10] MEDS: oxyCODONE IR 5 MG TAB PO PRN ×3 (06:31→12:00)
[2018-08-10 07:50] VITALS: BP 131/74
--- NOTE | 2018-08-10 08:44 | SOAPPROG ---
SOAP Progress Note Assessment/Plan: Assessment: Patient is doing well POD 1 s/p R MED MPL Pain management: pain is well controlled on oral pain meds. VTE ppx: recommend aspirin 81 mg BID for 4 weeks, cont JULIA and SCDs Anemia: level is expected initially postop. Asymptomatic. Continue to monitor D/c planning: d/c to home today pending release from PT muscle spasms: patient had relief with flexeril, will send to patient's pharmacy via our EMR system Plan: 08/10/18 08:43 Subjective: patient is doing well ,denies SOB, chest pain and N/V Objective: Vital Signs Temp Pulse Resp BP Pulse Ox 36.6 C 69 16 131/74 H 95 08/10/18 07:50 08/10/18 07:50 08/10/18 07:50 08/10/18 07:50 08/10/18 07:50 Laboratory Results 08/10/18 04:18 08/09/18 08/10/18 08/11/18 05:59 05:59 05:59 Intake Total 1970 Output Total 2550 Balance -580 RLE: incision dressing is clean and dry, NVI, +pf/df ICD10 Worksheet Patient Problems: Problems Problem Status Onset Osteochondritis dissecans Acute Primary localized osteoarthritis of right knee Acute Hyponatremia Acute Pneumonia Acute
[2018-08-10] MEDS: SENNOSIDES/DOCUSATE SODIUM TAB PO SCH (08:50)
[2018-08-10] MEDS: CYCLOBENZAPRINE 10 MG TAB PO PRN (08:52)
[2018-08-10] MEDS: ASPIRIN 81 MG CHEWABLE TAB PO SCH (08:52)
[2018-08-10] MEDS: FAMOTIDINE 20 MG TAB PO SCH (08:52)
[2018-08-10] MEDS ORDERED: buPROPion XL 150 MG TAB PO SCH (09:00)
--- NOTE | 2018-08-10 10:55 | ASMTLACE ---
LACE Length of stay for Answers: 2 days current admission Acuity / Level of Answers: No Care: Did the patient have an inpatient admission? Comorbidities - select Answers: Opioid dependence all that apply / Chronic pain Other Notes: GERD # of Emergency department Answers: 1-2 visits in the last 6 months Score: 8 Date Signed: 08/10/2018 10:54 AM Electronically Signed By:GUANAKO Gallo
--- NOTE | 2018-08-10 21:55 | GOP ---
DATE OF OPERATION: 08/09/2018 SURGEON: Elier Galan MD MINER OPERATOR: JAZZMINE Fountain ANESTHESIA: Spinal. PREOPERATIVE DIAGNOSIS: Right knee osteoarthritis. POSTOPERATIVE DIAGNOSIS: Right knee osteoarthritis. PROCEDURE PERFORMED: Right medial compartment knee arthroplasty robotic assist. FINDINGS: ESTIMATED BLOOD LOSS: 30 mL. INDICATIONS: This is a 67-year-old male with progressive pain of the right knee unresponsive to cons ervative care. Risks and benefits of surgical intervention were explained in detail. DESCRIPTION OF PROCEDURE: The patient was brought to the operating room and placed on the table in s upine position. Spinal anesthesia was induced without difficulty. A pneumatic tourniquet was applied about the right proximal thigh and the leg was prepped and draped in sterile fashion. Attention was t urned first to the distal aspect of the right femur. At 3 cm proximal to the lateral rise of the femu r, 2 percutaneous half pins were placed for fixation of the femoral array. In a similar fashion, 2 pi ns were placed anterolateral on the tibia for fixation of the tibial array. External land marking and registration of the hip center was performed without difficulty. After exsanguination by elevation, the tourniquet was inflated to 250 mmHg. Incision was made from the tibial tuberosity to the superior pole of the patella. Dissection was roe ied out through the subcutaneous tissue to the deep fascia using Bovie electrocautery for hemostasis. Medial parapatellar arthrotomy was carried out to the superior pole of the patella. The medial colla teral ligament was elevated and the infrapatellar fat pad was resected. Internal femoral and tibial r egistration was carried out without difficulty and the femoral and tibial checkpoints were placed and verified for accuracy. Attention was turned to the femur. The foot print for the size 5 femoral component was cut with the 6 mm bur using the [employer]entrick robotic system and verified for accuracy against the CT based plan. The hole wa s cut for the femoral post. In a similar fashion, the 6 mm bur was used to cut the foot print for the size 3 tibial component using the Zentrick system and verified for accuracy against the CT based plan. Attention was turned to the posterior aspect of the knee and remnants of the medial meniscus were exc ised. The posterior capsule was injected with ropivacaine, epinephrine and Toradol. Trial reduction w as carried out and there was excellent range of motion, alignment and stability using the size 3 femo ral component and the size 3 tibial component. All trials were then removed. The joint was thoroughly irrigated and carefully dried. One package of cement and 1 gram of vancomycin were mixed in the vacuum mixer and placed on the fixation surfaces of all components. The components were implanted and all excess cement was thoroughly removed. Implant placement was verified against the CT view plan and found to be excellent. The tourniquet was deflated and all bleeders were coagulated. The wound was thoroughly irrigated and closed using interrupted sutures of 2-0 Vicryl for the joint capsule. The subcu was closed with 3-0 V icryl and the skin with 4-0 Monocryl. Dermabond and Steri-Strips were applied, followed by a compress colten dressing. The patient was then moved from the operating room to the recovery room in good conditi on, having tolerated the procedure well. PATHOLOGY: Severe medial compartment osteoarthritis. CASE CLASSIFICATION: Clean. /[id number]/MODL
== END 2018-08-10 13:32 | disposition home or self-care (01) ==
LOC: F3N 11:23
PROVIDERS: ADMIT Orthopaedic Surgery; ATTEND Orthopaedic Surgery
DX: M17.11 Unilateral primary osteoarthritis, right knee (principal); K21.9 Gastro-esophageal reflux disease without esophagitis
CPT/HCPCS: 27446; 73560; 90686; 97116; 97161; C1713; C1776; G0008; G8978; G8979; G8980; J0171; J0690; J1100; J1885; J2250; J2704; J2795; J3370

== ENCOUNTER 2018-11-02 09:02 | Emergency (ER) | payer OTHER ==
--- NOTE | 2018-11-02 09:08 | EDPHY ---
H & P Time Seen by Provider: 11/02/18 09:07 HPI/ROS: CHIEF COMPLAINT: Chest pain HISTORY OF PRESENT ILLNESS: The patient presents to the ED for evaluation of a sharp left-sided chest pain began while he was driving to work. The patient reported the pain radiated to his neck and left shoulder. The patient has reported his symptoms have significantly subsided. He denies prior history of the symptoms. The patient states that had the pain been on the right he simply would of thought it was a muscular pain. The patient has no history of coronary artery disease. The patient denies any pleuritic chest pain. The patient denies asymmetric calf pain or swelling. REVIEW OF SYSTEMS: A comprehensive 10 point review of systems is otherwise negative aside from elements mentioned in the history of present illness. Source: Patient Exam Limitations: No limitations - Personal History Tetanus Vaccine Date: < 10 years - Medical/Surgical History Hx Asthma: No Hx Chronic Respiratory Disease: No Hx Diabetes: No Hx Cardiac Disease: No Hx Renal Disease: No Hx Cirrhosis: No Hx Alcoholism: No Hx HIV/AIDS: No Hx Splenectomy or Spleen Trauma: No Other PMH: R hip sx 2010. knee sx - Social History Smoking Status: Never smoked - Physical Exam Exam: General Appearance: Alert, no distress Eyes: Pupils equal and round no pallor or injection ENT, Mouth: Mucous membranes moist Respiratory: There are no retractions, lungs are clear to auscultation Cardiovascular: Regular rate and rhythm Gastrointestinal: Abdomen is soft and nontender, no masses, bowel sounds normal Neurological: A&O, normal motor function, normal sensory exam, normal cranial nerves Skin: Warm and dry, no rashes Musculoskeletal: Neck is supple nontender Extremities: symmetrical, full range of motion Psychiatric: Patient is oriented X 3, there is no agitation Constitutional: Initial Vital Signs Temperature (C) 36.8 C 11/02/18 09:08 Heart Rate 70 11/02/18 09:08 Respiratory Rate 16 11/02/18 09:08 Blood Pressure 141/76 H 11/02/18 09:08 O2 Sat (%) 93 11/02/18 09:08 O2 Delivery Mode Room Air Allergies/Adverse Reactions: Sulfa (Sulfonamide Antibiotics) Allergy (Mild, Verified 02/12/18 15:47) Other-Enter Comments Iodinated Contrast- Oral and IV Dye Allergy (Verified 02/12/18 17:48) Hives ENVIRONMENTAL Allergy (Mild, Uncoded 02/22/11 10:02) Other-Enter Comments Home Medications: Medication Instructions Recorded Mometasone Furoate Nasal [Nasonex] 2 sprays NASAL DAILY 12/01/11 Zolpidem Tartrate [Ambien 5MG (*)] 5 mg PO HS 12/01/11 traZODone [traZODone 150MG (*)] 150 mg PO HS 12/01/11 Acetaminophen [Tylenol ES 500 mg 1,000 mg PO TID 02/12/18 (*)] Docusate Sodium [Colace 100 MG (*)] 100 mg PO TID 02/12/18 Fexofenadine HCl [Marlene Allergy] 180 mg PO DAILY 02/12/18 Gabapentin [Neurontin 300 MG (*)] 300 mg PO HS 02/12/18 Herbals/Supplements -Info Only 1 ea PO DAILY 02/12/18 Lansoprazole [Prevacid] 30 mg PO DAILY 02/12/18 Tamsulosin HCl [Flomax 0.4 MG (*)] 0.8 mg PO DAILY 02/12/18 buPROPion XL [Wellbutrin 150mg XL] 450 mg PO DAILY 02/12/18 tiZANidine HCL [Zanaflex] 12 mg PO HS 02/12/18 Cholecalciferol Vit D3 [Vitamin D3 5,000 units PO DAILY 08/09/18 (*)] Aspirin [Aspirin 81mg (*)] 81 mg PO BID tab.chew 08/10/18 Polyethylene Glycol 3350 [Miralax 17 gm PO DAILY PRN pkt 08/10/18 17 gm (*)] Sennosides/Docusate Sodium 1 - 2 tab PO BID tab 08/10/18 [Senokot-S] oxyCODONE IR [Oxycodone Ir (*)] 5 - 10 mg PO Q3HRS PRN tab 08/10/18 Meloxicam 11/02/18 Medical Decision Making - Diagnostics EKG Interpretation: EKG: Complete interpretation has been separately recorded in the [facility] archive. Summary impression: Sinus rhythm, rate 71 ED Course/Re-evaluation: Patient presents the emergency department after an episode of unprovoked chest pain earlier today. The patient's EKG demonstrates no evidence of ischemia. The patient had 2 troponins done in the emergency department today which were normal. The patient does have a heart score of 4. A treadmill stress test was ordered by myself and performed at 1:30 p.m.. Treadmill stress test was nonspecifically abnormal. The patient did have an echo stress test which was normal. At this point time I do feel the patient can be discharged home. He will follow up with his primary care provider Differential Diagnosis: Differential diagnosis considered includes acute coronary syndrome, myocardial infarction, pericarditis - Data Points Laboratory Results: Laboratory Results 11/02/18 09:15 11/02/18 09:15 11/02/18 11/02/18 11/02/18 11:08 09:17 09:15 WBC RBC Hgb Hct MCV MCH MCHC RDW Plt Count MPV Neut % (Auto) Lymph % (Auto) Scurry % (Auto) Eos % (Auto) Baso % (Auto) Nucleat RBC Rel Count Absolute Neuts (auto) Absolute Lymphs (auto) Absolute Monos (auto) Absolute Eos (auto) Absolute Basos (auto) Absolute Nucleated RBC Immature Gran % Immature Gran # Sodium 137 mEq/L mEq/L (135-145) Potassium 4.8 mEq/L mEq/L (3.5-5.2) Chloride 102 mEq/L mEq/L (97-110) Carbon Dioxide 26 mEq/l mEq/l (22-31) Anion Gap 9 mEq/L mEq/L (6-14) BUN 23 mg/dL mg/dL (7-23) Creatinine 0.9 mg/dL mg/dL (0.7-1.3) Estimated GFR > 60 Glucose 103 mg/dL H mg/dL (70-100) Calcium 9.5 mg/dL mg/dL (8.5-10.4) POC Troponin I 0.01 ng/mL ng/mL 0.00 ng/mL ng/mL (0.00-0.08) (0.00-0.08) 11/02/18 09:15 WBC 6.43 10^3/uL 10^3/uL (3.80-9.50) RBC 4.96 10^6/uL 10^6/uL (4.40-6.38) Hgb 15.6 g/dL g/dL (13.7-17.5) Hct 45.8 % % (40.0-51.0) MCV 92.3 fL fL (81.5-99.8) MCH 31.5 pg pg (27.9-34.1) MCHC 34.1 g/dL g/dL (32.4-36.7) RDW 11.9 % % (11.5-15.2) Plt Count 233 10^3/uL 10^3/uL (150-400) MPV 9.3 fL fL (8.7-11.7) Neut % (Auto) 65.3 % % (39.3-74.2) Lymph % (Auto) 22.7 % % (15.0-45.0) Scurry % (Auto) 10.3 % % (4.5-13.0) Eos % (Auto) 0.6 % % (0.6-7.6) Baso % (Auto) 0.8 % % (0.3-1.7) Nucleat RBC Rel Count 0.0 % % (0.0-0.2) Absolute Neuts (auto) 4.20 10^3/uL 10^3/uL (1.70-6.50) Absolute Lymphs (auto) 1.46 10^3/uL 10^3/uL (1.00-3.00) Absolute Monos (auto) 0.66 10^3/uL 10^3/uL (0.30-0.80) Absolute Eos (auto) 0.04 10^3/uL 10^3/uL (0.03-0.40) Absolute Basos (auto) 0.05 10^3/uL 10^3/uL (0.02-0.10) Absolute Nucleated RBC 0.00 10^3/uL 10^3/uL (0-0.01) Immature Gran % 0.3 % % (0.0-1.1) Immature Gran # 0.02 10^3/uL 10^3/uL (0.00-0.10) Sodium Potassium Chloride Carbon Dioxide Anion Gap BUN Creatinine Estimated GFR Glucose Calcium POC Troponin I Point of Care Test Results: Chemistry 11/02/18 11/02/18 11:08 09:17 POC Troponin I 0.01 ng/mL ng/mL 0.00 ng/mL ng/mL (0.00-0.08) (0.00-0.08) Departure - Departure Disposition: Home, Routine, Self-Care Clinical Impression: Chest pain Condition: Good Instructions: Chest Pain (ED) Additional Instructions: 1. Please return to the ED for markedly worsening symptoms, fever, cough, congestion or difficulty breathing. 2. Please schedule a follow-up appointment with your primary care provider. 3. Your stress echocardiogram demonstrates no evidence of underlying cardiac ischemia. Referrals: Kamila Rudolph MD [Primary Care Provider] - As per Instructions
[2018-11-02 09:26] LABS: PLATELET COUNT 233 10^3/uL (150-400)
--- NOTE | 2018-11-02 13:54 | PDCONSULT ---
Electrotherapist Note: Treadmill Stress test note Indication: cp Description of Procedure: After informed consent was obtained, pt was exercised according to Dann Protocol. Monitoring was performed with standard stress non destructive testing supervisor electrode placement. Vital signs were monitored according to protocol throughout the procedure. STRESS EKG AND HEMODYNAMIC DATA Exercise time: 9 min. This is equivalent to: 10.2 METS. Resting heart rate: 68 bpm. Resting blood pressure: 116/76 mmHg. Resting O2 saturation: 96 % Peak heart rate: 141 bpm. This is 92 % of age predicted maximum heart rate response. Peak blood pressure: 174/78 mmHg. Exercise O2: 92 % Arrhythmias:1 PVC in stage 2 Reason for termination: The test was stopped due to maximal effort . Symptoms: The patient experienced no typical symptoms of angina during stress or recovery. STRESS TEST ANALYSIS Baseline ECG: sinus rhythm Stress ECG: sinus tach with 2 mm STD upsloping. Rhythm: No significant arrhythmias noted during exercise and recovery. Blood pressure: Normal blood pressure response to exercise. Exercise tolerance: The patient has normal exercise tolerance adjusted for age and gender. Symptoms: No exercise induced symptoms. IMPRESSIONS: Stress ECG is equivocal for ischemia due to 2 mm upsloping STD. Recommend testing with imaging.
--- NOTE | 2018-11-02 14:37 | CPEKG ---
Test Reason : OPEN Blood Pressure : / mmHG Vent. Rate : 071 BPM Atrial Rate : 072 BPM P-R Int : 157 ms QRS Dur : 084 ms QT Int : 384 ms P-R-T Axes : 030 068 030 degrees QTc Int : 418 ms Sinus rhythm Confirmed by José Shah ([id number]) on 11/02/2018 2:37:34 PM Referred By: Confirmed By:José Shah
--- NOTE | 2018-11-02 14:52 | PDCONSULT ---
Digital Media Specialist Note: Treadmill Stress test note/ Stress echo Indication: cp Description of Procedure: After informed consent was obtained, pt was exercised according to Dann Protocol. Monitoring was performed with standard stress test driller electrode placement. Vital signs were monitored according to protocol throughout the procedure. STRESS EKG AND HEMODYNAMIC DATA Exercise time: 9:30 min. This is equivalent to: 10.4 METS. Resting heart rate: 82 bpm. Resting blood pressure: 116/76 mmHg. Resting O2 saturation: 94 % Peak heart rate: 149 bpm. This is 97 % of age predicted maximum heart rate response. Peak blood pressure: 172/78 mmHg. Exercise O2: 92 % Arrhythmias: PACs in recovery. Reason for termination: The test was stopped due to maximal effort . Symptoms: The patient experienced no typical symptoms of angina during stress or recovery. STRESS TEST ANALYSIS Baseline ECG: sinus rhythm Stress ECG: sinus tach with 1.5 mm STD upsloping. Rhythm: No significant arrhythmias noted during exercise and recovery. Blood pressure: Normal blood pressure response to exercise. Exercise tolerance: The patient has normal exercise tolerance adjusted for age and gender. Symptoms: No exercise induced symptoms. IMPRESSIONS: Stress ECG is equivocal for ischemia due to 1.5 mm upsloping STD. Stress echo report dictated separately.
[2018-11-02 14:57] VITALS: BP 115/84
--- NOTE | 2018-11-02 14:57 | ECHO ---
[email or web address] [id number] Main: [phone] Fax: Stress Echocardiogram Name: MISTY WHITTINGTON MR#: [id number] Study Date: 11/02/2018 Study Time: 02:05 PM Date of : 1950 Age: 68 year(s) Height: ( ) Weight: ( ) BSA: Gender: Male Examination: Stress Echo Indication: Chest Pain Image Quality: Contrast: Requested by: José Shah Heart Rate: Rhythm: BP: / Procedure Staff Cooling Room Attendant: Cyndi Ramirez [facility] Reading Physician: Steve Li MD Requesting Provider: Conclusions: Normal stress echocardiogram. Findings: Stress Echo Findings: Stress Echo Impression: Normal Global Contractility: At rest, normal global systolic LV-function (EF 60-70%). With stress, hypercontractility of the left ventricle (EF {}%). LV Wall Scoring: At rest, no wall motion abnormalities. With stress, no ischemia-induced wall motion abnormalities. Exam Comments: There is a full and separately detailed report regarding the exercise treadmill test. This test was interpreted as indeterminate due to upsloping ST depressions.. (No Signature Object) Patient: MISTY WHITTINGTON Study Date: 11/02/2018 Page 1 of 1 02:05 PM [id number]
== END 2018-11-02 14:56 | disposition home or self-care (01) ==
DX: R07.89 Other chest pain (principal); M54.12 Radiculopathy, cervical region; Z88.2 Allergy status to sulfonamides
CPT/HCPCS: 84484-ER